=== PATIENT | male | born 1960 | race Caucasian/White ===

== ENCOUNTER 2017-04-13 08:24 | Emergency (ER) | payer MEDICARE, MEDICAID ==
[2017-04-13 08:41] VITALS: BP 140/75
--- NOTE | 2017-04-13 09:42 | UC ---
Throat Pain/Nasal Logan HPI - HPI Summary HPI Summary: SORE THROAT AND CONGESTION FOR FOUR DAYS. FEVER TODAY. PRODUCTIVE COUGH, WORSE WITH LAYING DOWN - History of Current Complaint Chief Complaint: UCRespiratory Stated Complaint: COUGH CONGESTION SORE THROAT Time Seen by Provider: 04/13/17 08:35 Hx Obtained From: Patient Onset/Duration: Gradual Onset, Lasting Days, Still Present Severity: Moderate Pain Intensity: 0 Pain Scale Used: 0-10 Numeric Cough: Productive Associated Signs & Symptoms: Positive: Sinus Discomfort, Nasal Discharge, Fever - Epiglottits Risk Factors Epiglottis Risk Factors: Negative - Allergies/Home Medications Allergies/Adverse Reactions: Allergies Allergy/AdvReac Type Severity Reaction Status Date / Time Amoxicillin Allergy Nausea Verified 09/01/14 07:25 Ampicillin Allergy Nausea Verified 09/01/14 07:25 Aspirin Allergy Nausea And Verified 09/01/14 07:25 Vomiting Eggs or Egg-derived Products Allergy Diarrhea Verified 09/01/14 07:25 Metformin Allergy NAUSEA, Verified 09/01/14 07:25 "BINDED UP" NSAIDs Allergy Nausea Verified 09/01/14 07:25 Penicillins [PCN] Allergy ANAPHYLACTI Verified 09/01/14 07:25 C ALL CILLIN'S Allergy SEVERE Uncoded 09/01/14 07:25 NAUSEA SULFA DRUGS Allergy Nausea Uncoded 09/01/14 07:25 PMH/Surg Hx/FS Hx/Imm Hx Previously Healthy: Yes - Surgical History Surgical History: Yes Surgery Procedure, Year, and Place: TONSILLECTOMY. LEFT KNEE ARTHROSCOPY. A TEEN- MOLE REMOVED FROM BACK - Family History Known Family History: Negative: Respiratory Disease - Social History Occupation: Employed Full-time Lives: With Family Alcohol Use: Occasionally Substance Use Type: None Smoking Status (MU): Former Smoker Amount Used/How Often: 2 PPD X 2 YEARS- THEN SMOKES A CIGAR EVERY 6 MONTHS Have You Smoked in the Last Year: No When Did the Patient Quit Smoking/Using Tobacco: 36 YEARS AGO- EXPOSED TO 2ND HAND SMOKE Review of Systems Constitutional: Negative Skin: Negative Eyes: Negative ENT: Sore Throat, Nasal Discharge, Sinus Congestion, Sinus Pain/Tenderness Respiratory: Cough Cardiovascular: Negative Gastrointestinal: Negative Genitourinary: Negative Motor: Negative Neurovascular: Negative Musculoskeletal: Negative Neurological: Negative Psychological: Negative All Other Systems Reviewed And Are Negative: Yes Physical Exam Triage Information Reviewed: Yes Appearance: No Pain Distress, Well-Nourished, Ill-Appearing Vital Signs: Initial Vital Signs Temp 99.1 F 04/13/17 08:38 Pulse 76 04/13/17 08:38 Resp 18 04/13/17 08:38 BP 140/75 04/13/17 08:38 Pulse Ox 95 04/13/17 08:38 Vital Signs Reviewed: Yes Eye Exam: Normal ENT: Positive: Hearing grossly normal, Nasal congestion, TM bulging, TM dull Dental Exam: Normal Neck exam: Normal Neck: Positive: Supple, Nontender, No Lymphadenopathy Respiratory Exam: Normal Respiratory: Positive: Chest non-tender, Lungs clear, Normal breath sounds, No respiratory distress, No accessory muscle use Cardiovascular Exam: Normal Cardiovascular: Positive: RRR, No Murmur, Pulses Normal Abdominal Exam: Normal Musculoskeletal Exam: Normal Neurological Exam: Normal Psychological Exam: Normal Skin Exam: Normal Throat Pain/Nasal Course/Dx - Differential Dx/Diagnosis Differential Diagnosis/HQI/PQRI: Pharyngitis, Sinusitis, Tonsillitis, URI Provider Diagnoses: SINUSITIS Discharge - Discharge Plan Condition: Stable Disposition: HOME Prescriptions: Azithromycin TAB* [Zithromax TAB (Z-KIMBERLEY) 250 mg #6 tabs] 250 mg PO DAILY #6 tab Benzonatate CAP* [Tessalon 100 MG CAP*] 100 mg PO TID PRN #15 cap PRN Reason: Cough Patient Education Materials: Sinusitis (ED) Referrals: Frederick Castaneda MD [Primary Care Provider] -
== END 2017-04-13 08:56 | disposition home or self-care (01) ==
LOC: UCEAST 08:24
DX: J32.9 Chronic sinusitis, unspecified (principal)
CPT/HCPCS: 99212; G0463

== ENCOUNTER 2017-08-21 10:57 | Inpatient (IN) | payer MEDICARE, MEDICAID ==
--- NOTE | 2017-08-21 12:17 | RAD ---
INDICATION: Shortness of breath, fever. Positive flu. COMPARISON: September 01, 2014 CT. TECHNIQUE: Dual energy PA and routine lateral views of the chest were obtained. REPORT: Alveolar consolidation at the lingula. Additionally alveolar consolidation at the medial segment of the RIGHT middle lobe. Negative for pleural effusion or pneumothorax. The heart, pulmonary vasculature, and mediastinal contours are unremarkable. Negative for suspicious osseous lesions or fracture. IMPRESSION: Bibasilar airspace consolidation consistent with pneumonia given the clinical context.
[2017-08-21 12:34] LABS: ABS Basophils 0 10^3/ul (0-0.2); ABS Eosinophils 0 10^3/ul (0-0.6); ABS Lymphocytes 0.4 10^3/ul (1.0-4.8); ABS Monocytes 0.3 10^3/ul (0-0.8); ABS Neutrophils 3.1 10^3/ul (1.5-7.7); ABS Nucleated RBC 0 10^3/ul; Eosinophil % 0 % (0-6); Hematocrit 43 % (42-52); Hemoglobin 14.8 g/dl (14.0-18.0); Lymphocyte % 10.9 % (25-47); Mean Corpuscular HGB Conc 34 g/dl (31-36); Mean Corpuscular Hemoglobin 30 pg (27-31); Mean Corpuscular Volume 89 fL (80-94); Mean Platelet Volume 9 um3 (7.4-10.4); Nucleated Red Blood Cells % 0.5; Platelet Count 127 10^3/ul (150-450); Red Blood Count 4.88 10^6/ul (4.0-5.4); Red Cell Distribution Width 13 % (10.5-15); White Blood Count 3.8 10^3/ul (3.5-10.8)
[2017-08-21 12:49] LABS: EGFR Non-African American 75.3 (>60)
[2017-08-21 12:51] LABS: INR 1.06 (0.77-1.02)
[2017-08-21 13:11] LABS: Urine Appearance Cloudy; Urine Blood 3+ (Negative); Urine Color Amber; Urine Ketones 1+ (Negative); Urine Protein 3+(>=500 mg/dL) (Negative); Urine Specific Gravity 1.029 (1.010-1.030); Urine Urobilinogen Negative (Negative)
[2017-08-21] MEDS ORDERED: Oseltamivir CAP* 75 MG PO ONE (14:23)
[2017-08-21] MEDS ORDERED: Levofloxacin 750 MG IVPREMIX(* 750 MG/150 ML BAG IVPB ONE (14:24)
--- NOTE | 2017-08-21 15:38 | ED ---
Jay Cardozo Angela, scribed for Baljit Jimenez MD on 08/21/17 at 1138 . Complex/Multi-Sys Presentation - HPI Summary HPI Summary: This pt is a 56 y/o male presenting to [facility] referred by his PCP c/o chronic cough for weeks, intermittent fevers. Pt additionally notes vomiting and diarrhea x4 days. Pt states he tested positive for Influenza A today at his PCP' s office. Pt notes he has not been able to take his medications (insulin, glipizide, thyroid meds) secondary to vomiting. He also reports he has not been eating well. He states some chest pain secondary to cough. Pt denies LE edema. Pt was referred by his PCP (Dr. Castaneda) to rule out pneumonia. - History Of Current Complaint Chief Complaint: EDGeneral Time Seen by Provider: 08/21/17 11:22 Hx Obtained From: Patient Onset/Duration: Lasting Days, Still Present Timing: Days Severity Currently: Moderate Aggravating Factor(s): nothing Alleviating Factor(s): nothing Associated Signs And Symptoms: Positive: Cough, Chest Pain - secondary to cough , Nausea, Vomiting, Fever Related History: Other - recent dx of influenza A - Allergies/Home Medications Allergies/Adverse Reactions: Allergies Allergy/AdvReac Type Severity Reaction Status Date / Time Amoxicillin Allergy Nausea Verified 08/21/17 11:22 Ampicillin Allergy Nausea Verified 08/21/17 11:22 Aspirin Allergy Nausea And Verified 08/21/17 11:22 Vomiting Cyclobenzaprine Allergy Nausea And Verified 08/21/17 11:22 [From Flexeril] Vomiting Eggs or Egg-derived Products Allergy Diarrhea Verified 08/21/17 11:22 Metformin Allergy NAUSEA, Verified 08/21/17 11:22 "BINDED UP" NSAIDs Allergy Nausea Verified 08/21/17 11:22 Penicillins [PCN] Allergy ANAPHYLACTI Verified 08/21/17 11:22 C ALL CILLIN'S Allergy SEVERE Uncoded 09/01/14 07:25 NAUSEA SULFA DRUGS Allergy Nausea Uncoded 09/01/14 07:25 Home Medications: Home Medications Insulin GLARGINE(*) [Lantus(*)] 50 units SUBCUT BID 08/21/17 [History Confirmed 08/21/17] Insulin LISPRO* [HumaLOG*] 8 units SUBCUT QPM 08/21/17 [History Confirmed ] Levothyroxine TAB* [Synthroid TAB*] 50 mcg PO DAILY 08/21/17 [History Confirmed 08/21/17] PMH/Surg Hx/FS Hx/Imm Hx Endocrine/Hematology History: Reports: Hx Diabetes - type 2 dm, Hx Thyroid Disease Cardiovascular History: Reports: Hx Hypertension - ON MEDICATION FOR, Hx Rheumatic Fever - AT AGE 5 Denies: Hx Pacemaker/ICD Respiratory History: Reports: Hx Asthma - HX OF IN THE PAST Musculoskeletal History: Reports: Hx Arthritis - RIGHT SHOULDER, Hx Tendonitis - RIGHT SHOULDER, Other Musculoskeletal History - DDD Sensory History: Reports: Hx Contacts or Glasses - GLASSES Denies: Hx Hearing Aid Opthamlomology History: Reports: Hx Contacts or Glasses - GLASSES Neurological History: Reports: Hx Headaches - SINUS, Other Neuro Impairments/ Disorders - MUSCLE SPASMS - ON GABAPENTIN FOR Psychiatric History: Denies: Hx Panic Disorder - Surgical History Surgery Procedure, Year, and Place: TONSILLECTOMY. LEFT KNEE ARTHROSCOPY. A TEEN- MOLE REMOVED FROM BACK Hx Anesthesia Reactions: Yes - EXTREME NAUSEA Infectious Disease History: No Infectious Disease History: Denies: Traveled Outside the [place] in Last 30 Days - Family History Known Family History: Negative: Respiratory Disease - Social History Alcohol Use: Rare Substance Use Type: Reports: None Smoking Status (MU): Former Smoker Amount Used/How Often: 2 PPD X 2 YEARS- THEN SMOKES A CIGAR EVERY 6 MONTHS Have You Smoked in the Last Year: No Review of Systems Constitutional: Other - decreased PO intake Positive: Fever. Negative: Chills Positive: Chest Pain - secondary to cough Positive: Cough Positive: Vomiting, Nausea Negative: Edema All Other Systems Reviewed And Are Negative: Yes Physical Exam - Summary Physical Exam Summary: Appearance: The patient is well-nourished in no acute pain. Skin: The skin is warm and dry and skin color reflects adequate perfusion. HEENT: The head is normocephalic and atraumatic. The pupils are equal and reactive. The conjunctivae are clear and without drainage. Nares are patent and without drainage. Mouth reveals moist mucous membranes and the throat is without erythema and exudate. The external ears are intact. The ear canals are patent and without drainage. The tympanic membranes are intact. Neck: the neck is supple with full range of motion and non-tender. There are no carotid bruits. There is no neck vein distension. Respiratory: Chest is non-tender. Inspiratory crackles bilaterally about half way up on both lungs. Cardiovascular: Heart is regular rate and rhythm. There is no murmur or rub auscultated. There is no peripheral edema and pulses are symmetrical and equal. Abdomen: The abdomen is soft and non-tender. There are normal bowel sounds heard in all four quadrants and there is no organomegaly palpated. Musculoskeletal: There is no back tenderness noted. Extremities are non-tender with full range of motion. There is good capillary refill. There is no peripheral edema or calf tenderness elicited. Neurological: Patient is alert and oriented to person, place and time. The patient has symmetrical motor strength in all four extremities. Cranial nerves are grossly intact. Deep tendon reflexes are symmetrical and equal in all four extremities. Psychiatric: The patient has an appropriate affect and does not exhibit any anxiety or depression. Triage Information Reviewed: Yes Vital Signs On Initial Exam: Initial Vitals Temp Pulse Resp BP Pulse Ox 100.0 F 79 18 131/80 89 08/21/17 11:05 08/21/17 11:05 08/21/17 11:05 08/21/17 11:05 08/21/17 11:05 Vital Signs Reviewed: Yes Diagnostics - Vital Signs Vital Signs Temp Pulse Resp BP Pulse Ox 08/21/17 11:05 100.0 F 79 18 131/80 89 - Laboratory Lab Results: Lab Results 08/21/17 08/21/17 08/21/17 Range/Units 12:20 12:20 12:20 WBC (3.5-10.8) 10^3/ul RBC (4.0-5.4) 10^6/ul Hgb (14.0-18.0) g/dl Hct (42-52) % MCV (80-94) fL MCH (27-31) pg MCHC (31-36) g/dl RDW (10.5-15) % Plt Count (150-450) 10^3/ul MPV (7.4-10.4) um3 Neut % (Auto) (38-83) % Lymph % (Auto) (25-47) % [place] % (Auto) (1-9) % Eos % (Auto) (0-6) % Baso % (Auto) (0-2) % Absolute Neuts (auto) (1.5-7.7) 10^3/ul Absolute Lymphs (auto) (1.0-4.8) 10^3/ul Absolute Monos (auto) (0-0.8) 10^3/ul Absolute Eos (auto) (0-0.6) 10^3/ul Absolute Basos (auto) (0-0.2) 10^3/ul Absolute Nucleated RBC 10^3/ul Nucleated RBC % INR (Anticoag Therapy) 1.06 H (0.77-1.02) APTT 34.4 (26.0-36.3) seconds Sodium 128 L (133-145) mmol/L Potassium 3.8 (3.5-5.0) mmol/L Chloride 95 L (101-111) mmol/L Carbon Dioxide 22 (22-32) mmol/L Anion Gap 11 (2-11) mmol/L BUN 28 H (6-24) mg/dL Creatinine 1.02 (0.67-1.17) mg/dL Est GFR ( Amer) 96.8 (>60) Est GFR (Non-Af Amer) 75.3 (>60) BUN/Creatinine Ratio 27.5 H (8-20) Glucose 375 H (70-100) mg/dL Lactic Acid (0.5-2.0) mmol/L Calcium 8.7 (8.6-10.3) mg/dL Total Bilirubin 0.70 (0.2-1.0) mg/dL AST 38 (13-39) U/L ALT 26 (7-52) U/L Alkaline Phosphatase 57 (34-104) U/L Troponin I 0.01 (<0.04) ng/mL C-Reactive Protein 55.49 H (< 5.00) mg/L B-Natriuretic Peptide 15 ( - 100) pg/mL Total Protein 7.3 (6.4-8.9) g/dL Albumin 3.6 (3.2-5.2) g/dL Globulin 3.7 (2-4) g/dL Albumin/Globulin Ratio 1.0 (1-3) Urine Color Urine Appearance Urine pH (5-9) Ur Specific [place] (1.010-1.030) Urine Protein (Negative) Urine Ketones (Negative) Urine Blood (Negative) Urine Nitrate (Negative) Urine Bilirubin (Negative) Urine Urobilinogen (Negative) Ur Leukocyte Esterase (Negative) Urine WBC (Auto) (Absent) Urine RBC (Auto) (Absent) Urine Bacteria (Absent) Hyaline Casts (Absent) Urine Glucose (Negative) 08/21/17 08/21/17 08/21/17 Range/Units 12:20 12:20 12:53 WBC 3.8 (3.5-10.8) 10^3/ul RBC 4.88 (4.0-5.4) 10^6/ul Hgb 14.8 (14.0-18.0) g/dl Hct 43 (42-52) % MCV 89 (80-94) fL MCH 30 (27-31) pg MCHC 34 (31-36) g/dl RDW 13 (10.5-15) % Plt Count 127 L (150-450) 10^3/ul MPV 9 (7.4-10.4) um3 Neut % (Auto) 80.9 (38-83) % Lymph % (Auto) 10.9 L (25-47) % [place] % (Auto) 7.7 (1-9) % Eos % (Auto) 0 (0-6) % Baso % (Auto) 0.5 (0-2) % Absolute Neuts (auto) 3.1 (1.5-7.7) 10^3/ul Absolute Lymphs (auto) 0.4 L (1.0-4.8) 10^3/ul Absolute Monos (auto) 0.3 (0-0.8) 10^3/ul Absolute Eos (auto) 0 (0-0.6) 10^3/ul Absolute Basos (auto) 0 (0-0.2) 10^3/ul Absolute Nucleated RBC 0 10^3/ul Nucleated RBC % 0.5 INR (Anticoag Therapy) (0.77-1.02) APTT (26.0-36.3) seconds Sodium (133-145) mmol/L Potassium (3.5-5.0) mmol/L Chloride (101-111) mmol/L Carbon Dioxide (22-32) mmol/L Anion Gap (2-11) mmol/L BUN (6-24) mg/dL Creatinine (0.67-1.17) mg/dL Est GFR ( Amer) (>60) Est GFR (Non-Af Amer) (>60) BUN/Creatinine Ratio (8-20) Glucose (70-100) mg/dL Lactic Acid 1.0 (0.5-2.0) mmol/L Calcium (8.6-10.3) mg/dL Total Bilirubin (0.2-1.0) mg/dL AST (13-39) U/L ALT (7-52) U/L Alkaline Phosphatase (34-104) U/L Troponin I (<0.04) ng/mL C-Reactive Protein (< 5.00) mg/L B-Natriuretic Peptide ( - 100) pg/mL Total Protein (6.4-8.9) g/dL Albumin (3.2-5.2) g/dL Globulin (2-4) g/dL Albumin/Globulin Ratio (1-3) Urine Color Yris Urine Appearance Cloudy Urine pH 5.0 (5-9) Ur Specific [place] 1.029 (1.010-1.030) Urine Protein 3+(>=500 mg/dl) H (Negative) Urine Ketones 1+ H (Negative) Urine Blood 3+ H (Negative) Urine Nitrate Negative (Negative) Urine Bilirubin Negative (Negative) Urine Urobilinogen Negative (Negative) Ur Leukocyte Esterase Negative (Negative) Urine WBC (Auto) Absent (Absent) Urine RBC (Auto) 1+(3-5/hpf) H (Absent) Urine Bacteria Absent (Absent) Hyaline Casts Present H (Absent) Urine Glucose 3+(>=500 mg/dl) H (Negative) Result Diagrams: 08/21/17 12:20 08/21/17 12:20 Lab Statement: Any lab studies that have been ordered have been reviewed, and results considered in the medical decision making process. - Radiology Chest XR Xray Interpretation: Positive (See Comments) - IMPRESSION: Bibasilar airspace consolidation consistent with pneumonia given the clinical context. Dr. Jimenez has reviewed this radiology report. Radiology Interpretation Completed By: Radiologist - EKG 11:49 Cardiac Rate: NL EKG Rhythm: Sinus Rhythm - at 75 bpm EKG Interpretation: Left axis. Complex Multi-Symp Course/Dx Course Of Treatment: Mr. Dolan presented with weeks of SOB and cough for which he was given antibiotics at least once. 3-4 days ago he started with fevers and he went to his PMD today. He was found to have a positive influenza swab in the office and sent here to R/O pneumonia. He does appear to have a LLL infiltrate and was treated here with Tamiflu and Levoquin. His SPO2 remained stubbornly low even on O2 and would drop into the high 80's without. Therefore i have asked the hospitalist service to evaluate him. - Diagnoses Provider Diagnoses: Influenza, Pneumonia - Physician Notifications Discussed Care Of Patient With: Meg Martínez Time Discussed With Above Provider: 14:56 Instructed by Provider To: Other - I discussed pt care with Dr. Martínez, hospitalist, who has agreed to admit the pt. Discharge - Discharge Plan Condition: Stable Disposition: ADMITTED TO [facility] Referrals: Frederick Castaneda MD [Primary Care Provider] - The documentation as recorded by the Jay rodriges Angela accurately reflects the service I personally performed and the decisions made by me, Baljit Jimenez MD.
[2017-08-21] MEDS ORDERED: tiZANidine TAB* 2 MG PO PRN (17:39)
[2017-08-21] MEDS ORDERED: Morphine TAB Extended Release (*) 30 MG TAB.ER PO PRN (17:39)
[2017-08-21] MEDS ORDERED: Dextrose 50% Syringe 50 ML* 25 GM/50 ML SYRINGE IV PUSH PRN (17:41)
[2017-08-21] MEDS ORDERED: Insulin LISPRO* 1 UNITS UNIT SUBCUT ONE (21:46)
[2017-08-21] MEDS: NS 0.9% 1000 ML* 1,000 ML IV SCH (22:00)
--- NOTE | 2017-08-21 22:00 | HP ---
CC: Dr. Frederick Castaneda * HISTORY AND PHYSICAL: DATE OF ADMISSION: 08/21/17 PRIMARY CARE PROVIDER: Dr. Frederick Castaneda. ATTENDING PHYSICIAN: Dr. Jo Ann Shankar * (dictated by Gaye Rainey NP). CHIEF COMPLAINT: Cough for a few weeks in addition to vomiting proceeded by diarrhea over the last few days. HISTORY OF PRESENT ILLNESS: Mr. Dolan is a 56-year-old male with a past medical history significant for type 2 diabetes mellitus, hypothyroidism, hypertension, rheumatic fever as a child, asthma, degenerative disk disease with chronic back pain, BPH and coronary artery disease, status post AR, who presented initially to his primary care provider's office with complaints of a chronic cough for weeks with intermittent fevers and chills. According to the patient on Friday approximately 6 days ago, he developed fever and chills, then on Friday the patient developed vomiting that lasted for 2 days, then developed diarrhea and has since had diarrhea for 3 days. He reports not eating well and unable to take his medications due to the vomiting. He also endorses some dysuria. The cough is productive with clear mucus. While in his primary care provider's office, he tested positive for influenza A and was felt that he possibly had a pneumonia, so he was referred to the emergency room for further evaluation. While in the emergency room, the patient was noted to have a low-grade fever of 100.0. He was also noted to be hypoxic with a room air oxygen saturation of 88 % to 90%. He was placed on 2 L and continued to be in the low 90s for an oxygen saturation. He received a dose of IV Levaquin after having a chest x-ray showing bibasilar consolidation consistent with a pneumonia. He had labs showing no leukocytosis, CRP of 55.49. Hospitalists were asked to evaluate the patient for admission. PAST MEDICAL HISTORY: 1. Diabetes mellitus type 2. 2. Hypothyroidism. 3. Hypertension. 4. Rheumatic fever as a child. 5. Asthma. 6. Degenerative disk disease with chronic back pain. 7. BPH. 8. Coronary artery disease, status post AR in 1990. HOME MEDICATIONS: Include: 1. Levothyroxine 50 mcg oral daily. 2. Lispro 8 units subcutaneous every evening. 3. Lantus 50 units subcutaneous twice daily. 4. Gabapentin 1200 mg oral daily at bedtime. 5. Morphine ER 30 mg oral 3 times daily as needed for pain. 6. Xyzal 5 mg oral daily. 7. Simvastatin 40 mg oral daily. 8. Actos 30 mg oral daily. 9. Multivitamin 1 tablet oral daily. 10. Zanaflex 4 mg oral daily as needed for muscle spasms. 11. Glipizide 20 mg oral twice daily. 12. Dyazide 37.5 mg/25 mg 1 capsule oral daily. 13. Tamsulosin 0.4 mg oral daily. ALLERGIES: AMOXICILLIN causes nausea, ASPIRIN, FLEXERIL, EGGS, METFORMIN, NSAIDs, PENICILLIN causes anaphylaxis, SULFA causes nausea. FAMILY HISTORY: The patient reports a brother with a history of heart failure. His mother passed from a brain aneurysm. His maternal cousins with history of diabetes in addition to a maternal uncle. Two maternal aunts with a history of cancer, one with lymphoma, the other with breast cancer. SOCIAL HISTORY: The patient is a former smoker, smoking many years ago for 2 year period 2 packs a day. He occasionally has a cigar. He rarely drinks alcohol. Denies recreational drug use. His daughter, Guerda Mcgee will be his surrogate decision maker in the event he is unable to make decisions for himself. REVIEW OF SYSTEMS: I performed an 11-point review of systems. All the pertinent positives and negatives are mentioned in the history of present illness. The remaining review of systems are negative. PHYSICAL EXAMINATION GENERAL APPEARANCE: The patient is alert, pleasant, appears to be in no acute distress. VITAL SIGNS: Temperature 100.0, heart rate 74, O2 sat 90% on 2 L nasal cannula , blood pressure 129/90. HEENT: Normocephalic, atraumatic. Pupils are equal and reactive to light. Extraocular movements are intact. RESPIRATORY: There is no accessory muscle use. He has crackles in both bases. CARDIOVASCULAR: Regular rate and rhythm. S1 and S2 are present. There are no murmurs, rubs, or gallops heard. ABDOMEN: Soft, nontender, and nondistended. Bowel sounds present x4. EXTREMITIES: There is no lower extremity edema. DP and PT pulses are 2+ and symmetric. MUSCULOSKELETAL: There is no clubbing or cyanosis noted. The patient exhibits good strength in all extremities. NEUROLOGIC: The patient is alert and oriented x4. Cranial nerves II through XII are grossly intact. PSYCHOLOGICAL: The patient is calm and cooperative. SKIN: There are no rashes or abnormalities seen. DIAGNOSTIC STUDIES/LABORATORY DATA: Sodium 128, potassium 3.8, chloride 95, CO2 22, BUN 28, creatinine 1.02, glucose 375, CRP 55.49. White blood cell count 3.8, hemoglobin 14.8, hematocrit 43, platelet count 129. Urinalysis negative. EKG shows a sinus rhythm at a rate of 75. There is no acute signs of ischemia. No previous EKGs for comparison. Chest x-ray from today, radiologist's impression: Bibasilar airspace consolidation consistent with pneumonia. IMPRESSION: Mr. Dolan is a 56-year-old male with a past medical history significant for diabetes mellitus type 2, hypothyroidism, hypertension, asthma, degenerative disk disease, chronic back pain, BPH and coronary artery disease, who presented to the emergency room with complaints of cough, fever, chills, nausea, vomiting, and diarrhea and was found to be influenza A positive at his primary care provider's office. He will be admitted as an inpatient for influenza A and pneumonia. ASSESSMENT/PLAN: 1. Influenza A. The patient will be placed on Tamiflu. He received his first dose in the emergency room that can be continued on b.i.d. for a total of 5 days. We will provide him with supportive care, some IV hydration overnight. 2. Pneumonia. The patient has bibasilar pneumonia due to his anaphylactic reaction to penicillins. He has been placed on Levaquin. We will check urine for Legionella and S pneumoniae. We will get a sputum sample as he is able to produce a sputum sample. 3. Diabetes mellitus. The patient has elevated glucoses in the emergency room. On labs, he is at 300. We will continue his home Lantus and give him lispro sliding scale. I will hold his oral antidiabetic agents while he is here in the hospital. 4. Hypothyroidism. The patient will be continued on his home levothyroxine. 5. Hypertension. Due to the patient's acute illness and his blood pressure is being controlled with systolic blood pressures in the 120s to 130s, I am going to initially hold his Dyazide and resume as able. 6. Benign prostatic hyperplasia. The patient will be continued on his tamsulosin. 7. Degenerative disk disease with chronic back pain. The patient will be continued on his home medications of gabapentin, Zanaflex, and morphine. 8. Coronary artery disease. The patient will be continued on his home statin. He is not currently on an aspirin or beta-ernestina. 9. Mild hyponatremia. I suspect this is secondary to hypovolemia, as the patient has been vomiting and having diarrhea. We will give him gentle IV hydration overnight and recheck his labs in the morning. 10. Fluids, electrolytes, and nutrition. Consistent carbohydrate diet as tolerated. 11. Code status. Full code. 12. DVT prophylaxis. The patient is at high risk, he will be placed on subcu heparin. 13. Disposition. Inpatient. TIME SPENT: Time for this admission was approximately 60 minutes, greater than half the time was spent with the patient discussing medications, past medical history, and the events leading to his arrival today, and performing a physical examination. The case has been reviewed with the attending, Dr. Shankar, who agrees with the plan of care. GAYE RAINEY, MINERVA [id number]/CPS #: [id number] LUCIEN
[2017-08-21] MEDS: Gabapentin CAP(*) 300 MG PO SCH (22:16)
[2017-08-21] MEDS: Oseltamivir CAP* 75 MG PO SCH (22:17)
[2017-08-21] MEDS: Heparin VIAL(*) 5000 UNITS/ML VIAL (FIVE THOUSAND) SUBCUT SCH (22:17)
[2017-08-21] MEDS: Insulin GLARGINE(*) 1 UNITS UNIT SUBCUT SCH (22:20)
[2017-08-22] MEDS: Acetaminophen TAB* 325 MG PO PRN (03:18)
[2017-08-22] MEDS: Levothyroxine TAB* 50 MCG TAB PO SCH (06:08)
[2017-08-22] MEDS: Heparin VIAL(*) 5000 UNITS/ML VIAL (FIVE THOUSAND) SUBCUT SCH ×3 (06:09→21:53)
[2017-08-22] MEDS: Oseltamivir CAP* 75 MG PO SCH ×2 (08:50→22:00)
[2017-08-22] MEDS: Atorvastatin* 20 MG TAB PO SCH (08:51)
[2017-08-22] MEDS: Cetirizine* 10 MG TAB PO SCH (08:51)
[2017-08-22] MEDS: Tamsulosin CAP* 0.4 MG PO SCH (08:51)
[2017-08-22] MEDS: Insulin GLARGINE(*) 1 UNITS UNIT SUBCUT SCH ×2 (08:53→21:52)
[2017-08-22] MEDS: Insulin LISPRO* 1 UNITS UNIT SUBCUT SCH ×3 (08:54→18:21)
[2017-08-22 08:56] LABS: ABS Basophils 0 10^3/ul (0-0.2); ABS Eosinophils 0 10^3/ul (0-0.6); ABS Lymphocytes 0.7 10^3/ul (1.0-4.8); ABS Monocytes 0.3 10^3/ul (0-0.8); ABS Neutrophils 1.5 10^3/ul (1.5-7.7); ABS Nucleated RBC 0 10^3/ul; Eosinophil % 0 % (0-6); Hematocrit 41 % (42-52); Hemoglobin 13.9 g/dl (14.0-18.0); Lymphocyte % 27.5 % (25-47); Mean Corpuscular HGB Conc 34 g/dl (31-36); Mean Corpuscular Hemoglobin 30 pg (27-31); Mean Corpuscular Volume 89 fL (80-94); Mean Platelet Volume 9 um3 (7.4-10.4); Nucleated Red Blood Cells % 0.1; Platelet Count 110 10^3/ul (150-450); Red Blood Count 4.63 10^6/ul (4.0-5.4); Red Cell Distribution Width 13 % (10.5-15); White Blood Count 2.4 10^3/ul (3.5-10.8)
[2017-08-22 09:12] LABS: EGFR Non-African American 66.2 (>60)
[2017-08-22] MEDS: NS 0.9% 1000 ML* 1,000 ML IV SCH (11:57)
[2017-08-22] MEDS: Levofloxacin 750 MG IVPREMIX(* 750 MG/150 ML BAG IVPB SCH (14:42)
--- NOTE | 2017-08-22 15:45 | PN ---
Subjective Date of Service: 08/22/17 Interval History: Patient feels "lousy" with general malaise, sinus congestion, and muscle aches. Patient denies abdominal pain, diarrhea, F/C, N/V, CP, dysuria, or other pain. Patient states that he has had his oxygen off since the morning, but his SpO2 when tested was 84 on RA which increased to 93% when placed back on 2L O2. Patient does not use oxygen at home. Family History: Unchanged from Admission Social History: Unchanged from Admission Past Medical History: Unchanged from Admission Objective Active Medications: Acetaminophen (Tylenol Tab*) 650 mg PO Q4H PRN PRN Reason: PAIN Last Admin: 08/22/17 03:18 Dose: 650 mg Atorvastatin Calcium (Lipitor*) 20 mg PO DAILY [facility] Last Admin: 08/22/17 08:51 Dose: Not Given Cetirizine HCl (Zyrtec*) 10 mg PO DAILY [facility] Last Admin: 08/22/17 08:51 Dose: 10 mg Dextrose (D50w Syringe 50 Ml*) 12.5 gm IV PUSH .FOR FS < 60 - SS PRN PRN Reason: FS < 60 Gabapentin (Neurontin Cap(*)) 1,200 mg PO BEDTIME [facility] Last Admin: 08/21/17 22:16 Dose: 1,200 mg Heparin Sodium (Porcine) (Heparin Vial(*)) 5,000 units SUBCUT Q8HR [facility] Last Admin: 08/22/17 13:13 Dose: 5,000 units Levofloxacin/Dextrose (Levaquin 750 Mg Ivpremix(*)) 750 mg in 150 mls @ 100 mls /hr IVPB Q24H [facility] Last Admin: 08/22/17 14:42 Dose: 100 mls/hr Sodium Chloride (Ns 0.9% 1000 Ml*) 1,000 mls @ 100 mls/hr IV PER RATE [facility] Last Admin: 08/22/17 11:57 Dose: 100 mls/hr Insulin Glargine (Lantus(*)) 50 units SUBCUT BID [facility] Last Admin: 08/22/17 08:53 Dose: 50 units Insulin Human Lispro (Humalog*) 0 - 10 units SUBCUT AC [facility] PRN Reason: Protocol Last Admin: 08/22/17 13:14 Dose: 4 units Levothyroxine Sodium (Synthroid Tab*) 50 mcg PO DAILY@0600 [facility] Last Admin: 08/22/17 06:08 Dose: 50 mcg Morphine Sulfate (Ms Contin(*)) 30 mg PO TID PRN PRN Reason: PAIN Oseltamivir Phosphate (Tamiflu Cap*) 75 mg PO BID [facility] Stop: 08/25/17 21:01 Last Admin: 08/22/17 08:50 Dose: 75 mg Tamsulosin HCl (Flomax Cap*) 0.4 mg PO DAILY [facility] Last Admin: 08/22/17 08:51 Dose: 0.4 mg Tizanidine HCl (Zanaflex Tab*) 4 mg PO TID PRN PRN Reason: SPASMS Vital Signs - 8 hr 08/22/17 08/22/17 08:00 08:15 Temperature 98.5 F Pulse Rate 66 Respiratory 20 20 Rate Blood Pressure 128/69 (mmHg) O2 Sat by Pulse 90 90 Oximetry Oxygen Devices in Use Now: Nasal Cannula - 2L Appearance: Patient is a 56yo male who appears stated age and is sitting in the bed in [facility]. Eyes: No Scleral Icterus, PERRLA Ears/Nose/Mouth/Throat: NL Teeth, Lips, Gums, Clear Oropharnyx, Mucous Membranes Moist, - - Nasal Congestion, no PND or exudate. Neck: NL Appearance and Movements; NL JVP, Trachea Midline Respiratory: Symmetrical Chest Expansion and Respiratory Effort, - - Slight end expiratory wheezes. Cardiovascular: NL Sounds; No Murmurs; No JVD, RRR, No Edema Abdominal: NL Sounds; No Tenderness; No Distention, No Hepatosplenomegaly Lymphatic: No Cervical Adenopathy Extremities: No Edema, No Clubbing, Cyanosis Skin: No Rash or Ulcers, No Nodules or Sclerosis Neurological: Alert and Oriented x 3, NL Sensation, NL Muscle Strength and Tone Result Diagrams: 08/22/17 08:19 08/22/17 08:19 Additional Lab and Data: Lab Results Microbiology and Other Data: Microbiology 08/22/17 10:30 Legionella Urinary Antigen - Final Urine Negative Legionella Streptococcus pneumoniae Ag Screen - Final Negative S. pneumo Antigen Assess/Plan/Problems-Billing Assessment: Patient is a 56yo male with a PMH significant for DMII, HTN, CAD with [place] and Hypothyroidism who presents with Influenza A and probable bilateral bacterial superinfection. - Patient Problems (1) Influenza A Current Visit: Yes Status: Acute Code(s): J10.1 - FLU DUE TO OTH IDENT INFLUENZA VIRUS W OTH RESP MANIFEST SNOMED Code(s): 808771925 Comment: Patient is symptomatic with SOB, Muscle aches and malaise. Contiue with Tamiflu and supportive care. (2) Bacterial pneumonia Current Visit: Yes Status: Acute Code(s): J15.9 - UNSPECIFIED BACTERIAL PNEUMONIA SNOMED Code(s): 16642407 Comment: Bilateral lower lobe infiltrates on CXR. Productive cough, SOB with hypoxia and fevers. No signs of sepsis. Continue Levaquin due to PCN allergy. Improving, but still on 3L O2. (3) Hypothyroid Current Visit: Yes Status: Acute Code(s): E03.9 - HYPOTHYROIDISM, UNSPECIFIED SNOMED Code(s): 49395659 Comment: Continue levothyroxine. (4) Asthma Current Visit: Yes Status: Acute Code(s): J45.909 - UNSPECIFIED ASTHMA, UNCOMPLICATED SNOMED Code(s): 007518524 Comment: Slight Wheezes on Exam. PRN Albuterol. (5) BPH (benign prostatic hyperplasia) Current Visit: Yes Status: Acute Code(s): N40.0 - BENIGN PROSTATIC HYPERPLASIA WITHOUT LOWER URINRY TRACT SYMP SNOMED Code(s): 093097364 Comment: Continue Flomax (6) Degenerative disc disease Current Visit: Yes Status: Acute Code(s): CNI5821 - SNOMED Code(s): 52421339 Comment: Continue Zanaflex, gabapentin, and MS contin. (7) CAD (coronary artery disease) Current Visit: Yes Status: Acute Code(s): I25.10 - ATHSCL HEART DISEASE OF [place] CORONARY ARTERY W/O ANG PCTRS SNOMED Code(s): 48323571 Comment: No indication of AMI, continue ASA and lipitor. (8) DVT prophylaxis Current Visit: Yes Status: Acute Code(s): XWM9514 - SNOMED Code(s): 268852888 Comment: Heparin subQ. (9) Full code status Current Visit: Yes Status: Acute Code(s): Z78.9 - OTHER SPECIFIED HEALTH STATUS SNOMED Code(s): 468419741 Status and Disposition: Patient is admitted inpatient. Discharge when medically stable.
[2017-08-22] MEDS ORDERED: Albuterol 2.5 MG/3 ML NEB.SOL* (0.083%) INH PRN (15:55)
[2017-08-22] MEDS: Gabapentin CAP(*) 300 MG PO SCH (21:48)
[2017-08-23] MEDS: Levothyroxine TAB* 50 MCG TAB PO SCH (06:14)
[2017-08-23] MEDS: Heparin VIAL(*) 5000 UNITS/ML VIAL (FIVE THOUSAND) SUBCUT SCH ×3 (06:15→21:23)
[2017-08-23 08:08] LABS: ABS Basophils 0 10^3/ul (0-0.2); ABS Eosinophils 0 10^3/ul (0-0.6); ABS Monocytes 0.4 10^3/ul (0-0.8); ABS Neutrophils 1.4 10^3/ul (1.5-7.7); ABS Nucleated RBC 0 10^3/ul; Eosinophil % 0.1 % (0-6); Hematocrit 39 % (42-52); Hemoglobin 13.5 g/dl (14.0-18.0); Lymphocyte % 34.9 % (25-47); Mean Corpuscular HGB Conc 35 g/dl (31-36); Mean Corpuscular Hemoglobin 31 pg (27-31); Mean Corpuscular Volume 88 fL (80-94); Mean Platelet Volume 8 um3 (7.4-10.4); Nucleated Red Blood Cells % 0.2; Platelet Count 115 10^3/ul (150-450); Red Blood Count 4.39 10^6/ul (4.0-5.4); Red Cell Distribution Width 13 % (10.5-15); White Blood Count 2.8 10^3/ul (3.5-10.8)
[2017-08-23 08:22] LABS: EGFR Non-African American 77.9 (>60)
[2017-08-23] MEDS: Cetirizine* 10 MG TAB PO SCH (08:52)
[2017-08-23] MEDS: Atorvastatin* 20 MG TAB PO SCH (08:52)
[2017-08-23] MEDS: Tamsulosin CAP* 0.4 MG PO SCH (08:52)
[2017-08-23] MEDS: Insulin GLARGINE(*) 1 UNITS UNIT SUBCUT SCH ×2 (08:53→21:22)
[2017-08-23] MEDS: Insulin LISPRO* 1 UNITS UNIT SUBCUT SCH ×3 (08:55→17:40)
[2017-08-23] MEDS: Potassium Chlor TAB* 20 MEQ TAB.ER PO SCH ×2 (09:21→21:20)
[2017-08-23] MEDS: Acetaminophen TAB* 325 MG PO PRN ×2 (09:21→19:29)
[2017-08-23] MEDS: Oseltamivir CAP* 75 MG PO SCH ×2 (11:52→21:19)
[2017-08-23] MEDS: Levofloxacin 750 MG IVPREMIX(* 750 MG/150 ML BAG IVPB SCH (13:34)
--- NOTE | 2017-08-23 14:44 | PN ---
Subjective Date of Service: 08/23/17 Interval History: Patient has no significant changes from yesterday. Patient still feels poorly and is having SOB, Muscle aches, and productive cough. Patient denies F/C, N/V, abdominal pain, CP, Dysuria, headache, changes in vision, or other pain. Family History: Unchanged from Admission Social History: Unchanged from Admission Past Medical History: Unchanged from Admission Objective Active Medications: Acetaminophen (Tylenol Tab*) 650 mg PO Q4H PRN PRN Reason: PAIN Last Admin: 08/23/17 09:21 Dose: 650 mg Albuterol (Ventolin 2.5 Mg/3 Ml Neb.Sherlyn*) 2.5 mg INH Q4H PRN PRN Reason: SOB/WHEEZING Atorvastatin Calcium (Lipitor*) 20 mg PO DAILY [facility] Last Admin: 08/23/17 08:52 Dose: 20 mg Cetirizine HCl (Zyrtec*) 10 mg PO DAILY [facility] Last Admin: 08/23/17 08:52 Dose: 10 mg Dextrose (D50w Syringe 50 Ml*) 12.5 gm IV PUSH .FOR FS < 60 - SS PRN PRN Reason: FS < 60 Gabapentin (Neurontin Cap(*)) 1,200 mg PO BEDTIME [facility] Last Admin: 08/22/17 21:48 Dose: 1,200 mg Heparin Sodium (Porcine) (Heparin Vial(*)) 5,000 units SUBCUT Q8HR [facility] Last Admin: 08/23/17 13:34 Dose: 5,000 units Levofloxacin/Dextrose (Levaquin 750 Mg Ivpremix(*)) 750 mg in 150 mls @ 100 mls /hr IVPB Q24H [facility] Last Admin: 08/23/17 13:34 Dose: 100 mls/hr Insulin Glargine (Lantus(*)) 50 units SUBCUT BID [facility] Last Admin: 08/23/17 08:53 Dose: 50 units Insulin Human Lispro (Humalog*) 0 - 10 units SUBCUT AC [facility] PRN Reason: Protocol Last Admin: 08/23/17 12:42 Dose: 4 units Levothyroxine Sodium (Synthroid Tab*) 50 mcg PO DAILY@0600 [facility] Last Admin: 08/23/17 06:14 Dose: 50 mcg Morphine Sulfate (Ms Contin(*)) 30 mg PO TID PRN PRN Reason: PAIN Oseltamivir Phosphate (Tamiflu Cap*) 75 mg PO BID [facility] Stop: 08/25/17 21:01 Last Admin: 08/23/17 11:52 Dose: 75 mg Potassium Chloride (Klor Con Er Tab*) 20 meq PO BID [facility] Stop: 08/23/17 21:01 Last Admin: 08/23/17 09:21 Dose: 20 meq Tamsulosin HCl (Flomax Cap*) 0.4 mg PO DAILY [facility] Last Admin: 08/23/17 08:52 Dose: 0.4 mg Tizanidine HCl (Zanaflex Tab*) 4 mg PO TID PRN PRN Reason: SPASMS Vital Signs - 8 hr 08/23/17 08/23/17 08/23/17 09:05 09:28 09:31 Temperature 97.7 F Pulse Rate 63 Respiratory 16 20 Rate Blood Pressure 111/64 (mmHg) O2 Sat by Pulse 93 93 Oximetry Oxygen Devices in Use Now: Nasal Cannula - 2L Appearance: Patient is a 56yo male who appears stated age and is sitting in the bed in [facility]. Eyes: No Scleral Icterus, PERRLA Ears/Nose/Mouth/Throat: NL Teeth, Lips, Gums, Clear Oropharnyx, Mucous Membranes Moist Neck: NL Appearance and Movements; NL JVP, Trachea Midline Respiratory: Symmetrical Chest Expansion and Respiratory Effort, - - Slight expiratory wheezes in B/L lower lobes. Cardiovascular: NL Sounds; No Murmurs; No JVD, RRR, No Edema Abdominal: NL Sounds; No Tenderness; No Distention, No Hepatosplenomegaly Lymphatic: No Cervical Adenopathy Extremities: No Edema, No Clubbing, Cyanosis Skin: No Rash or Ulcers, No Nodules or Sclerosis Neurological: Alert and Oriented x 3, NL Sensation, NL Muscle Strength and Tone , - - CN II-XII intact. Result Diagrams: 08/23/17 07:43 08/23/17 07:43 Additional Lab and Data: Lab Results Microbiology and Other Data: Microbiology 08/22/17 10:30 Legionella Urinary Antigen - Final Urine Negative Legionella Streptococcus pneumoniae Ag Screen - Final Negative S. pneumo Antigen Assess/Plan/Problems-Billing Assessment: Patient is a 56yo male with a PMH significant for DMII, HTN, CAD with [place] and Hypothyroidism who presents with Influenza A and probable bilateral bacterial superinfection. - Patient Problems (1) Influenza A Current Visit: Yes Status: Acute Code(s): J10.1 - FLU DUE TO OTH IDENT INFLUENZA VIRUS W OTH RESP MANIFEST SNOMED Code(s): 931847133 Comment: Patient is symptomatic with SOB, Muscle aches and malaise. Contiue with Tamiflu and supportive care. Unable to wean to Room air. Patient has no previous oxygen requirement or known unerlying lung disorder. (2) Bacterial pneumonia Current Visit: Yes Status: Acute Code(s): J15.9 - UNSPECIFIED BACTERIAL PNEUMONIA SNOMED Code(s): 30170349 Comment: Bilateral lower lobe infiltrates on CXR. Productive cough, SOB with hypoxia and fevers. No signs of sepsis. Continue Levaquin due to PCN allergy. Improving, but still on 2L O2. (3) Hypothyroid Current Visit: Yes Status: Acute Code(s): E03.9 - HYPOTHYROIDISM, UNSPECIFIED SNOMED Code(s): 35630294 Comment: Continue levothyroxine. (4) Asthma Current Visit: Yes Status: Acute Code(s): J45.909 - UNSPECIFIED ASTHMA, UNCOMPLICATED SNOMED Code(s): 988652584 Comment: Slight Wheezes on Exam. PRN Albuterol. (5) BPH (benign prostatic hyperplasia) Current Visit: Yes Status: Acute Code(s): N40.0 - BENIGN PROSTATIC HYPERPLASIA WITHOUT LOWER URINRY TRACT SYMP SNOMED Code(s): 245828512 Comment: Continue Flomax (6) Degenerative disc disease Current Visit: Yes Status: Acute Code(s): UOO3038 - SNOMED Code(s): 20228940 Comment: Continue Zanaflex, gabapentin, and MS contin. (7) CAD (coronary artery disease) Current Visit: Yes Status: Acute Code(s): I25.10 - ATHSCL HEART DISEASE OF [place] CORONARY ARTERY W/O ANG PCTRS SNOMED Code(s): 59039232 Comment: No indication of AMI, continue ASA and lipitor. (8) DVT prophylaxis Current Visit: Yes Status: Acute Code(s): CJK3873 - SNOMED Code(s): 536887906 Comment: Heparin subQ. (9) Full code status Current Visit: Yes Status: Acute Code(s): Z78.9 - OTHER SPECIFIED HEALTH STATUS SNOMED Code(s): 692265386 Status and Disposition: Patient is admitted inpatient. Discharge when medically stable.
[2017-08-23] MEDS: Gabapentin CAP(*) 300 MG PO SCH (21:19)
[2017-08-24] MEDS: Heparin VIAL(*) 5000 UNITS/ML VIAL (FIVE THOUSAND) SUBCUT SCH (06:49)
[2017-08-24] MEDS: Levothyroxine TAB* 50 MCG TAB PO SCH (06:49)
[2017-08-24 07:49] VITALS: BP 124/75
[2017-08-24 08:59] LABS: ABS Basophils 0 10^3/ul (0-0.2); ABS Eosinophils 0 10^3/ul (0-0.6); ABS Lymphocytes 0.8 10^3/ul (1.0-4.8); ABS Monocytes 0.3 10^3/ul (0-0.8); ABS Neutrophils 1.9 10^3/ul (1.5-7.7); ABS Nucleated RBC 0 10^3/ul; Eosinophil % 0.5 % (0-6); Hematocrit 38 % (42-52); Mean Corpuscular HGB Conc 34 g/dl (31-36); Mean Corpuscular Hemoglobin 30 pg (27-31); Mean Corpuscular Volume 89 fL (80-94); Mean Platelet Volume 9 um3 (7.4-10.4); Nucleated Red Blood Cells % 0.1; Platelet Count 140 10^3/ul (150-450); Red Blood Count 4.29 10^6/ul (4.0-5.4); Red Cell Distribution Width 13 % (10.5-15); White Blood Count 3.1 10^3/ul (3.5-10.8)
[2017-08-24 09:14] LABS: EGFR Non-African American 90.4 (>60)
[2017-08-24] MEDS: Insulin GLARGINE(*) 1 UNITS UNIT SUBCUT SCH (09:49)
[2017-08-24] MEDS: Atorvastatin* 20 MG TAB PO SCH (09:49)
[2017-08-24] MEDS: Tamsulosin CAP* 0.4 MG PO SCH (09:49)
[2017-08-24] MEDS: Cetirizine* 10 MG TAB PO SCH (09:49)
[2017-08-24] MEDS: Insulin LISPRO* 1 UNITS UNIT SUBCUT SCH (09:50)
[2017-08-24] MEDS: Oseltamivir CAP* 75 MG PO SCH (10:32)
--- NOTE | 2017-08-25 06:29 | DS ---
CC: Frederick Castaneda MD * DISCHARGE SUMMARY: DATE OF ADMISSION: 08/21/17 DATE OF DISCHARGE: 08/24/17 PRIMARY CARE PROVIDER: Frederick Castaneda MD MY ATTENDING WHILE IN THE HOSPITAL: Jo Ann Shankar MD * (DICTATED BY ASHU STRICKLAND) PRIMARY DISCHARGE DIAGNOSIS: Bilateral lower lobe bacterial pneumonia and influenza A. SECONDARY DISCHARGE DIAGNOSES: 1. Chronic low back pain. 2. Diabetes mellitus, type 2. 3. Hypothyroidism. 4. Hypertension. 5. Rheumatic fever as a child. 6. Asthma. 7. Benign prostatic hyperplasia. 8. Coronary artery disease, status post myocardial infarction in 1990. STUDIES DONE WHILE IN THE HOSPITAL: Chest x-ray from 08/21/17 read as bibasilar airspace consolidation consistent with pneumonia given clinical context. Electrocardiogram from 08/21/17 shows normal sinus rhythm, left axis deviation, no significant ST segment changes. No blocks. No hypertrophy or enlargement. Rate of 75, QTc of 421. No abnormalities. MEDICATIONS AT DISCHARGE: 1. Morphine. 2. MS Contin 30 mg p.o. t.i.d. as needed. 3. Multivitamin one tab p.o. daily. 4. Dyazide 37/25 one cap p.o. daily. 5. Pioglitazone 30 mg p.o. daily. 6. Xyzal 5 mg p.o. daily. 7. Gabapentin 1200 mg p.o. at bedtime. 8. Glipizide 20 mg p.o. b.i.d. 9. Zanaflex 4 mg p.o. t.i.d. as needed. 10. Simvastatin 40 mg p.o. daily. 11. Tamsulosin 0.4 mg p.o. daily. 12. Insulin Humalog 8 units subcutaneously q.p.m. 13. Insulin glargine 50 units subcutaneously b.i.d. 14. Levothyroxine 50 mcg p.o. daily. 15. Tylenol 650 mg p.o. q.4 hours as needed. 16. Levofloxacin 750 mg p.o. daily x5. 17. Oseltamivir 75 mg p.o. b.i.d. x4. New medications at discharge: 1. Tylenol. 2. Levofloxacin. 3. Oseltamivir. Medications discontinued at discharge, none. HOSPITAL COURSE: This is a brief summary of the patient's presentation. For more details, please see the history and physical from Chasidy Torrez NP, on 08/21/17. In brief, the patient is a 56-year-old female with past medical history significant for the above who presented to the emergency department with chronic cough, intermittent fevers and chills, muscle aches for approximately 6 days and was vomiting for the last 2 days with diarrhea before he came into the hospital. The patient was unable to eat or take his medications. The patient had dysuria and productive cough. The patient was sent in from his primary care provider's office. The patient had a low grade fever of 100 in the emergency room. The patient was placed on 2 L, which was adequate only to bring him up to oxygen saturation in the low 90s. The patient had chest x-ray findings as above and CRP of 55.49. The patient was admitted to the hospital for treatment. The patient also tested positive for influenza A. The patient was admitted to the hospital for treatment of his influenza and probable bilateral pneumonia. The patient did not improve greatly from to 08/22/17. The patient had to be increased to 3 L of oxygen to maintain his oxygen saturation above 90%. The patient continued to feel poorly. The patient's laboratory studies were significant for a drop in his white blood cell count from 3.8 to 2.4 and his absolute lymphocytes increased from 0.4 to 0.7. The patient had hypokalemia, which resolved on repletion. The patient had frjam-ys-ndey glucose of 407 when he was first admitted to the hospital. The patient's creatinine was 1.02 and increased to 1.14 on his first day in the hospital. The patient had urinalysis, showed 3+ blood, 3+ protein and no other abnormalities except for hyaline casts and glucose. The patient improved slightly from 08/22/17 to 08/23/17. The patient's laboratory studies improved with white blood cell count increasing to 2.8 and his absolute lymphocyte count improving to 1.0. The patient had persistent hypokalemia, which was again replaced. His creatinine improved from 1.14 to 1.99. The patient had a magnesium checked, it was 2.1. The patient was attempted to be weaned off oxygen, but was unable to do so. The patient's oxygen saturation dropped down as low as 84%, off oxygen. The patient has felt significantly better on , but still was unable to be weaned off oxygen. The patient did not feel comfortable going home. The patient had no other complaints. The patient's laboratory data and clinical condition improved greatly on 08/24/17. The patient even stated he felt good. The patient's oxygen saturation was staying in the mid 90s on room air. The patient was agreeable to be discharged to home. While in the hospital, the patient had a negative urinary legionella and streptococcus pneumoniae antigen. The patient had no growth on his blood cultures and sputum culture is pending. PHYSICAL EXAMINATION ON DAY OF DISCHARGE: General: The patient is a 56-year- old male who appears stated age and sitting comfortably in bed, in no acute distress. Vital Signs: At the time of discharge, temperature 98.4, pulse rate 71, respiratory rate 16, oxygen saturation 94% on room air, blood pressure 124/ 75. Neck: Supple, nontender. No lymphadenopathy. No carotid bruits auscultated. Cardiac: Regular rate and rhythm. No clicks, murmurs, gallops or rubs. Pulses 2+ in bilateral dorsalis pedis, posterior tibialis, and radial areas. No edema noted in bilateral lower extremities. Respiratory: Clear to auscultation bilaterally. No wheezes, rales, or rhonchi. Good air exchange bilateral. Abdomen: Soft, nontender, nondistended. Bowel sounds present, normoactive in all 4 quadrants. No abdominal bruits auscultated. Skin: Clean , dry, and intact. No rash. Genitourinary: No suprapubic tenderness or CVA tenderness. Neuro: Cranial nerves II through XII grossly intact. No focal deficits. Alert and oriented x3. Psychiatric: Pleasant and cooperative. The patient has a flat effect. LABORATORY DATA ON DAY OF DISCHARGE: White blood cell count 3.1, hemoglobin 13.0, platelet count 140,000, absolute lymphocytes 0.8. Sodium 139, potassium 3.3, chloride 106, carbon dioxide 25, anion gap 8, BUN 16, creatinine 0.87, glucose 173, calcium 8.7, magnesium 1.7. Other laboratory values of note during this admission; CRP 55.49, troponin I of 0.01, lactic acid 1.0 on admission, platelet count 127,000 on admission. DISCHARGE PLAN: The patient will be discharged to home on Tamiflu and Levaquin as above. The patient should avoid strenuous activity during the acute phase of his illness. The patient should follow up with his primary care provider within 1 week to document improvement in his clinical condition. The patient should resume all of his antihyperglycemic medications at home and follow up with his primary care provider about their continued efficacy. The patient should ingest sugary fluids for any signs of hyperglycemia such as shakiness, confusion or diaphoresis. The patient should return to the hospital for alarming symptoms such as significant deterioration in his respiratory status or chest pain, especially chest pain similar to his [place] in 1990. The patient should engage in activity as tolerated, avoiding strenuous activities as above. The patient should have a heart healthy diet with consistent carbohydrates and no caffeine. TIME SPENT: Approximately 60 minutes was spent on this discharge, 30 of which was spent [id number] with the patient obtaining history and physical and discussing the treatment plan. ASHU STRICKLAND [id number]/[facility] #: [id number] [place]
== END 2017-08-24 11:30 | disposition home or self-care (01) | DRG 194 ==
LOC: ED 10:57 → MED 17:37
PROVIDERS: ADMIT Internal Medicine; ATTEND Internal Medicine
DX: J10.08 Influenza due to other identified influenza virus with other specified pneumonia (principal); E87.1 Hypo-osmolality and hyponatremia; I11.9 Hypertensive heart disease without heart failure; J15.9 Unspecified bacterial pneumonia; M54.5 Low back pain; E11.9 Type 2 diabetes mellitus without complications; E03.9 Hypothyroidism, unspecified; J45.909 Unspecified asthma, uncomplicated; N40.0 Benign prostatic hyperplasia without lower urinary tract symptoms; I25.10 Atherosclerotic heart disease of native coronary artery without angina pectoris; E86.1 Hypovolemia; E87.6 Hypokalemia; M51.36 Other intervertebral disc degeneration, lumbar region; R09.02 Hypoxemia; Z79.84 Long term (current) use of oral hypoglycemic drugs; Z79.4 Long term (current) use of insulin; Z79.899 Other long term (current) drug therapy; Z88.0 Allergy status to penicillin; Z88.2 Allergy status to sulfonamides; Z88.8 Allergy status to other drugs, medicaments and biological substances; Z88.6 Allergy status to analgesic agent; Z88.1 Allergy status to other antibiotic agents; Z91.012 Allergy to eggs; Z82.49 Family history of ischemic heart disease and other diseases of the circulatory system; Z83.3 Family history of diabetes mellitus; Z80.3 Family history of malignant neoplasm of breast; Z80.7 Family history of other malignant neoplasms of lymphoid, hematopoietic and related tissues; Z87.891 Personal history of nicotine dependence
CPT/HCPCS: 36415; 71046; 80048; 80053; 81003; 81015; 83605; 83735; 83880; 84484; 85025; 85610; 85730; 86140; 87040; 87070; 87077; 87205; 87899; 93005; 94760; A9270-GY; J1644